=== PATIENT | male | born 1990 | race African-American/Black ===

== ENCOUNTER 2016-07-18 08:31 | Emergency (ER) | payer SELFPAY ==
--- NOTE | 2016-07-18 10:47 | ER Document Report ---
ED General - General Chief Complaint: Thumb Injury Stated Complaint: THUMB PAIN Time seen by provider: 10:25 Mode of Arrival: Ambulatory Information source: Patient Notes: 25-year-old male accidentally stuck himself with a pick type comb in his right thumb 2 days ago. He reports continued pain and swelling involving the distal phalanx of his right thumb. He denies any drainage from the ear but does note bruising underneath his nail. He denies injury or pain elsewhere Physical Exam: General: Alert, appears well. HEENT: Normocephalic. Atraumatic. PERRLA. Extraocular movements intact. Oropharynx clear. Neck: Supple. Non-tender. Respiratory: No respiratory distress. Clear and equal breath sounds bilaterally. Cardiovascular: Regular rate and rhythm. Abdominal: Normal Inspection. Soft, non-tender. No distension. Normal Bowel Sounds. Back: Non-tender. No deformity or step off. Extremities: Right thumb has a superficial once a middle ear abrasion proximally where he reports one of the other kinds scraped him. He has a puncture wound to the radial side of his thumb just proximal to the nail. There is small amount of mildly tender soft tissue swelling just proximal to the nail and subungual hematoma involving approximately 30% of the nail proximally into the radial side. There is no active bleeding and no purulence is expressed with palpation. Neurological: Nonfocal Psychological: Normal affect. Normal Mood. Skin: Warm. Dry. Normal color. TRAVEL OUTSIDE OF THE [place] IN LAST 30 DAYS: No - Related Data Allergies/Adverse Reactions: No Known Allergies Allergy (Unverified 07/18/16 08:34) Past Medical History - Social History Smoking Status: Current Every Day Smoker Chew tobacco use (# tins/day): No Frequency of alcohol use: Occasional Drug Abuse: None Family History: None Patient has suicidal ideation: No Patient has homicidal ideation: No Review of Systems - Review of Systems Constitutional: denies: Chills, Fever EENT: denies: Ear pain, Throat pain Cardiovascular: denies: Chest pain Respiratory: denies: Cough, Short of breath Gastrointestinal: denies: Nausea, Vomiting Genitourinary: denies: Burning, Dysuria Musculoskeletal: denies: Back pain Skin: See HPI Hematologic/Lymphatic: denies: Swollen glands Neurological/Psychological: denies: Weakness, Numbness Physical Exam - Vital signs Vitals: Temp Pulse Resp BP Pulse Ox 97.3 F 59 L 20 132/75 H 99 07/18/16 08:34 07/18/16 08:34 07/18/16 08:34 07/18/16 08:34 07/18/16 08:34 Course - Vital Signs Vital signs: Temp Pulse Resp BP Pulse Ox 97.3 F 59 L 20 132/75 H 99 07/18/16 08:34 07/18/16 08:34 07/18/16 08:34 07/18/16 08:34 07/18/16 08:34 Procedures - Nail Trephanation/Removal Right Thumb Time completed: 10:44 Betadine prep applied: Yes - Linda Method of Drainage: 18 gauge needle Sterile Dressing Applied: Yes Notes: 07/18/16 10:45 2 small holes drilled the nail with small amount of serosanguineous drainage and improvement in patient's symptoms Discharge - Discharge Clinical Impression: Subungual hematoma Condition: Stable Disposition: HOME, SELF-CARE Additional Instructions: Subungual Hematoma You have a collection of blood between the nail bed and nail, called a subungual hematoma. This injury is often very painful due to the pressure that builds up under the nail. The pressure is relieved by draining blood from beneath the nail, either by creating some small holes in it, or by the nail from the skin. This will usually stop the pain. Sometimes the nail must be removed completely to examine the nail bed for injury. You should elevate the injured digit as much as possible for the next two days. Usually the injured nail will separate from its bed over the next few weeks. A new nail will grow over the exposed nail bed. This may take two or three months. If swelling around the cuticle, redness, fever, or increasing pain occur, you should call the doctor immediately.
[2016-07-18 11:07] VITALS: BP 135/74
== END 2016-07-18 11:07 | disposition home or self-care (01) ==
LOC: ER 08:31
PROC: 0H9QXZZ Drainage of Finger Nail, External Approach (ICD-10-PCS; principal; 2016-07-18)
DX: S60.111A Contusion of right thumb with damage to nail, initial encounter (principal); W22.8XXA Striking against or struck by other objects, initial encounter; F17.200 Nicotine dependence, unspecified, uncomplicated
CPT/HCPCS: 99283